=== PATIENT | female | born 1960 | race Caucasian/White ===

== ENCOUNTER 2017-04-18 11:44 | Emergency (ER) | payer BC ==
[2017-04-18 14:30] VITALS: BP 130/79
== END 2017-04-18 14:39 | disposition home or self-care (01) ==
LOC: ED 11:44
DX: S61.451A Open bite of right hand, initial encounter (principal); W57.XXXA Bitten or stung by nonvenomous insect and other nonvenomous arthropods, initial encounter; Y93.89 Activity, other specified; Y99.8 Other external cause status; Y92.89 Other specified places as the place of occurrence of the external cause
CPT/HCPCS: J2930; Q0163

== ENCOUNTER 2018-11-02 15:51 | Emergency (ER) | payer BC ==
[~2018-11-02] VITALS: Ht 160 cm; Wt 80.7 kg
[2018-11-02 16:00] VITALS: BP 166/91; Ht 160 cm; Wt 80.7 kg
== END 2018-11-02 16:54 | disposition home or self-care (01) ==
LOC: ED 15:51
DX: S33.5XXA Sprain of ligaments of lumbar spine, initial encounter (principal); I10 Essential (primary) hypertension; X58.XXXA Exposure to other specified factors, initial encounter; Y93.89 Activity, other specified; Y92.89 Other specified places as the place of occurrence of the external cause; Y99.8 Other external cause status